=== PATIENT | female | born 1960 | race Caucasian/White ===

== ENCOUNTER 2018-07-13 07:21 | Observation (INO) | payer BC ==
[2018-07-13] MEDS ORDERED: FAMOTIDINE 20 MG TAB PO ONE (07:23)
[2018-07-13] MEDS ORDERED: diphenhydrAMINE 25 MG CAP PO ONE ×2 (07:23→07:44)
[2018-07-13] MEDS ORDERED: ASPIRIN EC 325 MG TAB PO ONE ×2 (07:23→07:44)
[2018-07-13] MEDS ORDERED: NS 1,000 ML IV ONE (07:23)
[2018-07-13] MEDS ORDERED: DIAZEPAM 5 MG TAB PO ONE (07:23)
[2018-07-13] MEDS ORDERED: FAMOTIDINE 20 MG TAB ONE (07:44)
[2018-07-13] MEDS ORDERED: DIAZEPAM 5 MG TAB ONE (07:44)
[2018-07-13 08:00] LABS: PLATELET COUNT 279 10^3/uL (150-400)
[2018-07-13 08:08] LABS: INR 1.04 (0.83-1.16); PROTIME(PATIENT) 13.2 SEC (12.0-15.0)
[2018-07-13] MEDS ORDERED: MIDAZOLAM 2 MG/2 ML VIAL ONE (08:56)
[2018-07-13] MEDS ORDERED: LIDOCAINE 1% 300 MG/30 ML SDV ONE (08:56)
[2018-07-13] MEDS ORDERED: VERAPAMIL 5 MG/2 ML VIAL ONE (08:56)
[2018-07-13] MEDS ORDERED: fentaNYL 100 MCG/2 ML INJ ONE (08:56)
[2018-07-13] MEDS ORDERED: HEPARIN 10,000 UNIT/10 ML MDV (1,000 UNIT/ML) ONE (08:56)
[2018-07-13] MEDS ORDERED: IOPAMIDOL (ISOVUE-370) 150 ML BTL IV ONE (08:57)
--- NOTE | 2018-07-13 09:57 | PDPROPOC ---
Sedation Plan of Care Sedation Plan of Care: vital signs stable, mental status noted, patient educated of risks, benefits, alternatives, patient can tolerate sedation ASA Classification: ASA 1 Planned drugs: fentanyl, midazolam Mallampati Score: Class 1 Mallampati Reference Image: Patient passed 3-3-2 rule?: Yes
--- NOTE | 2018-07-13 09:57 | PDHPUP ---
History & Physical Update H&P update statement: This history and physical update is based on an assessment of the patient which was completed after admission or registration (within 24 hours), but prior to the surgery/procedure. H&P update: H&P reviewed & patient examined, no change in patient's condition since H&P completed
[2018-07-13] MEDS ORDERED: ATROPINE SULFATE 1 MG/10 ML SYR ONE (11:09)
[2018-07-13] MEDS ORDERED: NITROGLYCERIN 1,500 MCG/15 ML VIAL MISC ONE (11:18)
[2018-07-13] MEDS ORDERED: CLOPIDOGREL BISULFATE 75 MG TAB ONE (11:39)
[2018-07-13] MEDS ORDERED: NITROGLYCERIN 0.4 MG BTL SL PRN (11:54)
[2018-07-13] MEDS ORDERED: ONDANSETRON 4 MG/2 ML VIAL IVP PRN (11:54)
[2018-07-13] MEDS ORDERED: ATROPINE SULFATE 1 MG/10 ML SYR IVP PRN (11:54)
[2018-07-13] MEDS ORDERED: CLOPIDOGREL BISULFATE 75 MG TAB PO ONE (11:54)
[2018-07-13] MEDS ORDERED: HYDROCODONE/APAP 5/325 TAB PO PRN (11:54)
[2018-07-13] MEDS ORDERED: NS 1,000 ML IV SCH (12:00)
--- NOTE | 2018-07-13 12:09 | PDDXCAT ---
Diagnostic Cath Note - . Date: 07/13/18 Dairy Manager: Krzysztof Indication: other (Symptoms consistent with anginal equivalent and CAD risk factors.) - Procedure Access: right wrist Procedure: left heart catheterization, coronary angiography, left ventriculogram , other (PCI of the RCA) - Materials Left Heart Cath size: 4F Left Heart Cath materials: standard multipack (JL4, JR4, pigtail) - Findings-Left Heart Catheterization LM: Normal. LAD: Minimal irregularities. LCX: Minimal irregularities. RCA: Focal 90% mid-RCA stenosis; otherwise minimal irregularities. EDP: 17 mmHg LVEF: 70% Wall motion: No regional variation in contractility. Complications: None Estimated blood loss: <50ml Closure method: TR Band Assessment: 1) Coronary artery disease as described above. 2) Successful PCI of the RCA using a single drug-coated stent. 3) Normal left ventricular systolic function. Intervention: Based on the patient's clinical history and diagnostic angiography, the decision was made to perform PC I of the high-grade stenosis in the mid-RCA. The previously placed 4 Malagasy sheath in the right radial artery was exchanged for a 6 Malagasy sheath. The patient received 3000 units of intravenous heparin in addition to the 5000 units that had been given at the beginning of the procedure. A 6 Malagasy JR 4 guide catheter was advanced to the RCA ostium. An Intuition guidewire was advanced to the distal RCA. Predilatation of the target lesion was performed using a 2.0 x 15 mm Emerge balloon. A 2.75 x 20 mm Synergy stent was advanced into position and deployed at high pressure. Despite inflations at the maximum rated pressure, there was still an underexpanded segment in the midportion of the stented region. Postdilatation was performed using a 2.75 x 15 mm NC Emerge balloon up to 20 atmospheres. Final angiograms demonstrated 0% residual stenosis and [place]-III flow.
[2018-07-13] MEDS ORDERED: ZOLPIDEM TARTRATE 5 MG TAB PO PRN (15:19)
[2018-07-13] MEDS ORDERED: LISINOPRIL/HCTZ 20/12.5MG 1 EA TAB PO SCH (21:00)
[2018-07-13] MEDS ORDERED: SERTRALINE HCL 100 MG TAB PO SCH (21:00)
[2018-07-13] MEDS ORDERED: TEMAZEPAM 15 MG CAP PO PRN (21:00)
[2018-07-13] MEDS: prednisoLONE ACET 1% 5 ML OPHT.BTL RTEYE SCH ×2 (21:36→21:42)
[2018-07-13] MEDS: POLYMYXIN B SULFATE/TMP 10 ML OPHT.BTL EACHEYE SCH ×2 (21:36→21:42)
[2018-07-13] MEDS: traMADol 50 MG TAB PO PRN (22:25)
[2018-07-14] MEDS ORDERED: LEVOTHYROXINE 25 MCG TAB PO SCH (06:00)
[2018-07-14] MEDS: traMADol 50 MG TAB PO PRN (07:03)
[2018-07-14] MEDS: POLYMYXIN B SULFATE/TMP 10 ML OPHT.BTL EACHEYE SCH (07:04)
[2018-07-14] MEDS: prednisoLONE ACET 1% 5 ML OPHT.BTL RTEYE SCH (07:04)
[2018-07-14 08:17] VITALS: BP 120/61
[2018-07-14] MEDS ORDERED: Levemir Flextouch SQ SCH (09:00)
[2018-07-14] MEDS ORDERED: ESTRADIOL 0.5 MG TAB PO SCH (09:00)
[2018-07-14] MEDS ORDERED: ASPIRIN EC 325 MG TAB PO SCH (09:00)
[2018-07-14] MEDS ORDERED: CLOPIDOGREL BISULFATE 75 MG TAB PO SCH (09:00)
[2018-07-14] MEDS ORDERED: ATORVASTATIN CALCIUM 40 MG TAB PO SCH (09:00)
[2018-07-14] MEDS ORDERED: FENOFIBRATE 145 MG TAB PO SCH (09:00)
--- NOTE | 2018-07-14 11:21 | ASDISCHSUM ---
Discharge Information Plan Status:Home with No Needs Medically Cleared to Leave:07/14/2018 Discharge Date:07/14/2018 11:08 AM CM D/C Disposition:Home, Routine, Self-Care ADT D/C Disposition:Home, Routine, Self-Care Projected Discharge Date:07/14/2018 11:08 AM Transportation at D/C: Discharge Delay Reason: Follow-Up Date:07/14/2018 11:08 AM Discharge Slot: Final Diagnosis: Placement Information Patient Contact Information Contact Name:MAVIS Relationship: Address:[address] [place] Work Phone: City:[place] Alternate Phone: State/Zip Code:[place] [address] Email: Financial Information Financial Class:BCOP Primary Plan Desc: OUT OF STATE PP Primary Plan Number:[id number] Secondary Plan Desc: Secondary Plan Number: Assessment Information LACE LACE Length of stay for Answers: Less than 1 day current admission Acuity / Level of Answers: No Care: Did the patient have an inpatient admission? Comorbidities - select Answers: Coronary Artery Disease all that apply Diabetes (uncontrolled or controlled) Opioid dependence / Chronic pain Previous myocardial infarction # of Emergency department Answers: 0 visits in the last 6 months Score: 8 Date Signed: 07/14/2018 11:19 AM Electronically Signed By:Mignon Broussard RN Intervention Information
--- NOTE | 2018-07-14 11:26 | GDS ---
[f rep st] DISCHARGE SUMMARY DISCHARGE DIAGNOSES: 1. Coronary artery disease, status post stenting to a focal 90% mid right coronary artery lesion with a 2.75 x 20 mm Synergy drug-eluting stent. 2. Hypertriglyceridemia. 3. Hypertension. HOSPITAL COURSE: For detailed H and P, please see prior dictation. Briefly, the patient is a 58-year-old female who presented to our office complaining of chest pressure and shortness of breath, which occurred with exertion, but more so at rest. Her symptoms radiated into her left arm and resolved within a few minutes. She then had 1 episode of severe chest pain, which radiated into her left arm and was associated with shortness of breath a month ago. She rated the pain 10/10. She also noted diaphoresis with her symptoms. Ultimately, the decision was made to proceed with an angiogram, which was done by Dr. Abisai Blankenship on July 13, 2018. She was found to have a focal 90% mid RCA stenosis which was stented with a 2.75 x 20 mm Synergy drug-eluting stent. Her remaining arteries had minimal irregularities. Her left ventricular ejection fraction was normal at 70%. The following morning, she denied any chest discomfort or shortness of breath. She was monitored on telemetry and remained in normal sinus rhythm with rare PVCs. Her EKG showed normal sinus rhythm with prior inferior infarct. There is also poor R-wave progression in the anterior leads consistent with a prior anterior infarct. The following morning, she denied any discomfort of her right wrist where access was obtained for the angiogram. PHYSICAL EXAMINATION: GENERAL: Patient appears in no acute distress. VITAL SIGNS: Blood pressure 120/61, heart rate 58, oxygen saturation of 98% on room air, afebrile. LUNGS: Clear to auscultation. No wheezes, rhonchi, or crackles auscultated. CARDIAC: Regular rate and rhythm, without any murmurs, rubs, or gallops appreciated. EXTREMITIES: Right wrist where access was obtained for the angiogram is clean, intact, without any evidence of infection. She did develop a small hematoma last night and has some swelling just proximal to the access site. She has a warm well-perfused hand. LABORATORY: Triglycerides 297, LDL 62, HDL 28, total cholesterol 149. DISCHARGE MEDICATIONS: Plavix 75 mg daily, aspirin 325 mg daily, Ambien CR 12.5 mg p.r.n. at nighttime, tramadol 100 mg p.r.n., Zoloft 100 mg at bedtime, metformin 1000 mg b.i.d., Provera 5 mg p.o. at bedtime, lisinopril HCTZ 20/12.5 mg at bedtime, Synthroid 25 mcg daily, Levemir 30 units at bedtime, Tricor 145 mg at bedtime, estradiol 1.5 mg at bedtime, Lipitor 40 mg at bedtime, Pred Forte eye drops q.i.d., Acular eyedrops q.i.d., Polytrim eyedrops q.i.d. PLAN: The patient is currently stable ready for discharge home. She is aware that she is to remain on aspirin and Plavix for a minimum of 1 year. Wrist precautions were discussed with her today. She will follow up with Dr. Lai Nolan on August 17 at 3:30 p.m. as scheduled. Greater than 30 minutes was spent coordinating the patient's care today. /[id number]/MODL MTDD
[2018-07-15] MEDS ORDERED: metFORMIN HCL 500 MG TAB PO SCH (18:00)
--- NOTE | 2018-07-17 18:42 | CPEKG ---
Test Reason : OPEN Blood Pressure : / mmHG Vent. Rate : 061 BPM Atrial Rate : 061 BPM P-R Int : 155 ms QRS Dur : 086 ms QT Int : 425 ms P-R-T Axes : 061 011 012 degrees QTc Int : 428 ms Sinus rhythm Anterior infarct, old Inferior myocardial infarction Confirmed by Rober Santos ([id number]) on 07/17/2018 6:41:58 PM Referred By: Abisai Blankenship Confirmed By:Rober Santos
--- NOTE | 2018-07-17 18:47 | CPEKG ---
Test Reason : OPEN Blood Pressure : / mmHG Vent. Rate : 060 BPM Atrial Rate : 060 BPM P-R Int : 154 ms QRS Dur : 083 ms QT Int : 428 ms P-R-T Axes : 059 033 028 degrees QTc Int : 428 ms Sinus rhythm Probable left atrial enlargement Old inferior infarction Confirmed by Rober Santos ([id number]) on 07/17/2018 6:47:29 PM Referred By: Abisai Blankenship Confirmed By:Rober Santos
--- NOTE | 2018-07-17 18:49 | CPEKG ---
Test Reason : OPEN Blood Pressure : / mmHG Vent. Rate : 055 BPM Atrial Rate : 055 BPM P-R Int : 183 ms QRS Dur : 084 ms QT Int : 453 ms P-R-T Axes : 068 -05 008 degrees QTc Int : 434 ms Sinus rhythm Inferior infarct, old Anterior infarct, old Confirmed by Rober Santos ([id number]) on 07/17/2018 6:48:40 PM Referred By: Abisai Blankenship Confirmed By:Rober Santos
== END 2018-07-14 11:08 | disposition home or self-care (01) ==
LOC: FCATH 07:21 → F2W 11:54
PROVIDERS: ADMIT Internal Medicine Interventional Cardiology; ATTEND Internal Medicine Cardiovascular Disease
DX: I25.119 Atherosclerotic heart disease of native coronary artery with unspecified angina pectoris (principal); I25.2 Old myocardial infarction; E78.1 Pure hyperglyceridemia; Z82.49 Family history of ischemic heart disease and other diseases of the circulatory system; I10 Essential (primary) hypertension; E11.39 Type 2 diabetes mellitus with other diabetic ophthalmic complication; Z79.84 Long term (current) use of oral hypoglycemic drugs; Z87.891 Personal history of nicotine dependence
CPT/HCPCS: 92928; 93458; C1725; C1769; C1887; G0378; C1874; C9600; J0461; J1644; J2250; J3010; Q9967

== ENCOUNTER → 2018-08-25 | Outpatient (CLI) | payer BC ==
[~2018-08-25] MED LIST: GADOBUTROL 10 ML VIAL IVP ONE
== END ==
LOC: FIMAGING 14:34
PROVIDERS: ATTEND Nurse Practitioner
DX: H53.9 Unspecified visual disturbance (principal); R27.9 Unspecified lack of coordination; R41.3 Other amnesia
CPT/HCPCS: 82565-PO; A9585